=== PATIENT | male | born 1965 | race Caucasian/White ===

== ENCOUNTER 2017-07-22 20:24 | Inpatient (IN) | payer OTHER ==
[2017-07-22 21:03] VITALS: BMI 38.7
--- NOTE | 2017-07-22 21:41 | HP ---
COWS - Scale Resting Pulse: 1= [place] 81-100 Sweatin=Flushed/Facial Moisture Restless Observation: 1= Difficult to Sit Still Pupil Size: 1= Pupils >than Normal Bone or Joint Aches: 4=Acute Joint/Muscle Pain Runny Nose/ Eye Tearin= Runny Nose/Eyes GI Upset > 30mins: 2= Nausea/Diarrhea Tremor Observation: 1= Tremor Libby, Not Seen Yawning Observation: 0= None Anxiety or Irritability: 2=Irritable/Anxious Goose Flesh Skin: 0=Smooth Skin COWS Score: 16 Admission [facility] - HPI Chief Complaint: C/O WITHDRAWAL SX'S FROM HEROINE Allergies/Adverse Reactions: Allergies Allergy/AdvReac Type Severity Reaction Status Date / Time penicillin G Allergy Severe Swelling Verified 07/22/17 21:35 History of Present Illness: 51 Y.O. MALE WITH WITH HEROIN DEPENDENCE ADMITTED FOR DETOX. CLIENT DENIES RECENT DETOX SERVICES. HE IS KNOW TO [facility]. REPORTS LONGEST CLEAN TIME 30 YEARS. RELAPSING 2009. Exam Limitations: Physical Impairment (AMBULATES WITH CANE DUE SCIATICA AND SPINAL STENOSIS, NEUROPATHY) - Ebola screening Have you traveled outside of the country in the last 21 days: No Have you had contact with anyone from an Ebola affected area: No Have you been sick,other than usual withdrawal symptoms: No Do you have a fever: No - Review of Systems Constitutional: Chills, Malaise, Night Sweats, Changes in sleep EENT: reports: Dental Problems (MISSING TEETH), Mouth Pain (DENTAL PAIN), Other (GLASSES) Respiratory: reports: No Symptoms reported Cardiac: reports: No Symptoms Reported GI: reports: Diarrhea : reports: No Symptoms Reported Musculoskeletal: reports: Back Pain, Joint Pain, Neck Pain Integumentary: reports: No Symptoms Reported Neuro: reports: No Symptoms reported Endocrine: reports: Other (H/O DM) Hematology: reports: No Symptoms Reported Psychiatric: reports: Depressed Other Systems: Reviewed and Negative Patient History - Patient Medical History Hx Anemia: No Hx Asthma: Yes Hx Chronic Obstructive Pulmonary Disease (COPD): Yes Hx Cancer: No Hx Cardiac Disorders: No Hx Congestive Heart Failure: No Hx Hypertension: Yes Hx Hypercholesterolemia: No Hx Pacemaker: No HX Cerebrovascular Accident: No Hx Seizures: No Hx Dementia: No Hx Diabetes: Yes Hx Gastrointestinal Disorders: No Hx Genitourinary Disorders: No Hx Sexually Transmitted Disorders: No Hx Renal Disease (ESRD): No Hx Thyroid Disease: No Hx Human Immunodeficiency Virus (HIV): No (NEGATIVE) Hx Hepatitis C: Yes Hx Depression: Yes (ON MEDS) Hx Suicide Attempt: Yes (PRESENTLY DENIES. LAST ATTEMPT 2010) Hx Bipolar Disorder: Yes Hx Schizophrenia: No Other Medical History: DENIES - Patient Surgical History Past Surgical History: Yes Hx Neurologic Surgery: No Hx Cataract Extraction: No Hx Cardiac Surgery: No Hx Lung Surgery: Yes (BILATERAL PNEUMOTHORAX IN 2012) Hx Breast Surgery: No Hx Breast Biopsy: No Hx Abdominal Surgery: No Hx Appendectomy: No Hx Cholecystectomy: No Hx Genitourinary Surgery: No Hx Section: No Hx Orthopedic Surgery: No Other Surgical History: chest tube, both lungs in 2012/tonsilectomy - PPD History Previous Implant?: Yes Documented Results: Negative w/proof Implanted On Prior [facility] Admission?: Yes Date: 01/01/16 PPD to be Administered?: Yes - Smoking Cessation Smoking history: Former smoker Have you smoked in the past 12 months: Yes Aproximately how many cigarettes per day: 6 Hx Chewing Tobacco Use: No Initiated information on smoking cessation: Yes - Substance & Tx. History Hx Alcohol Use: No Hx Substance Use: Yes Substance Use Type: Heroin Hx Substance Use Treatment: Yes ([facility]) - Substances Abused HEROIN Route: Injection Frequency: Daily Amount used: 15 BAGS Age of first use: 11 Date of Last Use: 07/21/17 Family Disease History - Family Disease History Family Disease History: CA: Father (), Mother (breast ca) Admission Physical Exam S - Vital Signs Vital Signs: Vital Signs - 24 hr 07/22/17 21:00 Temperature 96.8 F L Pulse Rate 90 Respiratory 18 Rate Blood Pressure 140/90 - Physical General Appearance: Yes: Appropriately Dressed, Mild Distress, Tremorous, Sweating, Anxious HEENTM: Yes: EOMI, Normocephalic, Pharynx Normal, Nasal Congestion Respiratory: Yes: Chest Non-Tender, Lungs Clear, Normal Breath Sounds, No Respiratory Distress, No Accessory Muscle Use Neck: Yes: No masses,lesions,Nodules, Supple, Trachea in good position Breast: Yes: Breast Exam Deferred Cardiology: Yes: Regular Rhythm, S1, S2, Tachycardia Abdominal: Yes: Normal Bowel Sounds, Non Tender, Soft Genitourinary: Yes: Within Normal Limits Back: Yes: Normal Inspection Musculoskeletal: Yes: Other (AMBULATES WITH CANE) Extremities: Yes: Normal Capillary Refill, Non-Tender, Tremors Neurological: Yes: nailer machine II-XII NML intact, Fully Oriented, Alert Integumentary: Yes: Warm, Moist, Track Haley, Other (FLUSHED BLE VARICOSITES OLD SCAR FROM SLASHING OF WRIST TO L ARM) Lymphatic: Yes: Within Normal Limits - Diagnostic (1) Asthma Current Visit: Yes Status: Chronic Qualifiers: Asthma severity: mild intermittent Asthma complication type: uncomplicated Qualified Code(s): J45.20 - Mild intermittent asthma, uncomplicated (2) Diabetes Current Visit: Yes Status: Chronic Qualifiers: Diabetes mellitus type: type 2 (3) Hypertension Current Visit: Yes Status: Chronic Qualifiers: Hypertension type: essential hypertension Qualified Code(s): I10 - Essential (primary) hypertension (4) Opioid dependence with withdrawal Current Visit: Yes Status: Chronic Cleared for Admission S - Detox or Rehab [facility] Level of Care: Medically Managed Detox Regimen/Protocol: Methadone S Breath Alcohol Content Breath Alcohol Content: 0 Urine Drug Screen - Results Drug Screen Negative: No Urine Drug Screen Results: OPI-Opiates
[2017-07-22] MEDS ORDERED: MAGNESIUM CITRATE 300 ML BOTTLE PO PRN (21:54)
[2017-07-22] MEDS ORDERED: diphenhydrAMINE HCL 50 MG CAPSULE PO PRN (21:54)
[2017-07-22] MEDS ORDERED: NICOTINE POLACRILEX 2 MG GUM BUC PRN (21:54)
[2017-07-22] MEDS ORDERED: ACETAMINOPHEN 325 MG TABLET (FP) PO PRN (21:54)
[2017-07-22] MEDS ORDERED: MAG HYDROX/AL HYDROX/SIMETH 30 ML UNIT-DOSE CUP PO PRN (21:54)
[2017-07-22] MEDS ORDERED: METHADONE HCL 10 MG TABLET (FOR DETOX USE ONLY) PO ONE ×2 (21:54→23:00)
[2017-07-22] MEDS ORDERED: MENTHOL/PHENOL 1 EACH UD MM PRN (21:54)
[2017-07-22] MEDS ORDERED: guaiFENesin/D-METHORPHAN HB 10 ML UNIT-DOSE CUPS PO PRN (21:54)
[2017-07-22] MEDS ORDERED: MAGNESIUM HYDROX 2400MG/30ML ORAL SUSPENSION 30 ML CUP PO PRN (21:54)
[2017-07-22] MEDS ORDERED: P-EPHED 60MG/TRIPROLIDI 2.5MG TABLET PO PRN (21:54)
[2017-07-22] MEDS ORDERED: LOPERAMIDE HCL 2 MG CAPSULE PO PRN (21:54)
[2017-07-22] MEDS ORDERED: ALBUTEROL SO4 6.7 GM HFA INHALER IH PRN (21:57)
[2017-07-22] MEDS: diazePAM 5 MG TABLET PO PRN (23:11)
[2017-07-22] MEDS: THIAMINE HCL 100 MG TABLET (FP) PO SCH (23:13)
[2017-07-23 00:44] LABS: URINE APPEARANCE SLCLOUDY; URINE BILIRUBIN NEGATIVE (NEGATIVE); URINE BLOOD NEGATIVE (NEGATIVE); URINE COLOR DKYELLOW; URINE GLUCOSE (UA) 2+ (NEGATIVE); URINE KETONE NEGATIVE (NEGATIVE); URINE LEUK ESTERASE NEGATIVE (NEGATIVE); URINE NITRITE NEGATIVE (NEGATIVE); URINE PROTEIN NEGATIVE (NEGATIVE); URINE UROBILINOGEN NEGATIVE mg/dL (0.2-1.0)
[2017-07-23] MEDS: diazePAM 5 MG TABLET PO PRN ×4 (05:19→22:22)
[2017-07-23] MEDS: metFORMIN HCL 500 MG TABLET (FP) PO SCH ×2 (07:30→17:16)
[2017-07-23] MEDS: hydrOXYzine PAMOATE 50 MG CAPSULE (FP) PO PRN (08:45)
[2017-07-23] MEDS: HYDROCHLOROTHIAZIDE 12.5 MG CAPSULE (FP) PO SCH (09:38)
[2017-07-23] MEDS: LISINOPRIL 20 MG TABLET (FP) PO SCH (09:38)
[2017-07-23] MEDS: PRENATAL VITAMINS W/ FOLIC ACID TABLET (FP) PO SCH (09:38)
[2017-07-23 09:56] LABS: MCH 26.9 pg (25.7-33.7); MCHC 32.1 g/dl (32.0-35.9); MEAN CELL VOLUME 83.7 fl (80-96); PLATELET COUNT 135 K/MM3 (134-434); RDW 13.8 % (11.9-15.9); WHITE BLOOD COUNT 5.9 K/mm3 (4.0-10.0)
[2017-07-23] MEDS ORDERED: METHADONE HCL 10 MG TABLET (FOR DETOX USE ONLY) PO ONE (10:00)
[2017-07-23 10:20] LABS: ALBUMIN 3.2 g/dl (3.4-5.0); ALK PHOS 114 U/L (45-117); ANION GAP 9 (8-16); BILIRUBIN,TOTAL 0.3 mg/dL (0.2-1.0); CALCIUM 8.7 mg/dL (8.5-10.1); CO2 25 mmol/L (21-32); CREATININE 0.8 mg/dL (0.7-1.3); GLUCOSE,RANDOM 165 mg/dL (74-106); SGOT/AST 16 U/L (15-37); SGPT/ALT 28 U/L (12-78); TOT PROT 6.3 g/dl (6.4-8.2)
--- NOTE | 2017-07-23 12:07 | PN ---
BHS COWS - Scale Resting Pulse: 1= [place] 81-100 Sweatin=Flushed/Facial Moisture Restless Observation: 1= Difficult to Sit Still Pupil Size: 0= Normal to Room Light Bone or Joint Aches: 1= Mild Discomfort Runny Nose/ Eye Tearin= Runny Nose/Eyes GI Upset > 30mins: 1= Stomach Cramp Tremor Observation of Outstretched Hands: 2= Slight Tremor Visible Yawning Observation: 1= 1-2x During Session Anxiety or Irritability: 2=Irritable/Anxious Goose Flesh Skin: 0=Smooth Skin COWS Score: 13 BHS Progress Note (SOAP) Subjective: Anxiety,tremors,sweating,interrupted sleep,restless. Objective: 07/23/17 12:06 Vital Signs - 8 hr 07/23/17 07/23/17 06:26 11:13 Temperature 97.6 F 97.1 F L Pulse Rate 80 99 H Respiratory 16 20 Rate Blood Pressure 130/86 129/71 Laboratory Last Values WBC 5.9 K/mm3 (4.0-10.0) 07/23/17 07:50 RBC 4.68 M/mm3 (4.00-5.60) 07/23/17 07:50 Hgb 12.6 GM/dL (11.7-16.9) 07/23/17 07:50 Hct 39.1 % (35.4-49) 07/23/17 07:50 MCV 83.7 fl (80-96) 07/23/17 07:50 MCH 26.9 pg (25.7-33.7) 07/23/17 07:50 MCHC 32.1 g/dl (32.0-35.9) 07/23/17 07:50 RDW 13.8 % (11.9-15.9) 07/23/17 07:50 Plt Count 135 K/MM3 (134-434) 07/23/17 07:50 MPV 11.0 fl (7.5-11.1) 07/23/17 07:50 Sodium 141 mmol/L (136-145) 07/23/17 07:50 Potassium 3.8 mmol/L (3.5-5.1) 07/23/17 07:50 Chloride 107 mmol/L (98-107) 07/23/17 07:50 Carbon Dioxide 25 mmol/L (21-32) 07/23/17 07:50 Anion Gap 9 (8-16) 07/23/17 07:50 BUN 20 mg/dL (7-18) H 07/23/17 07:50 Creatinine 0.8 mg/dL (0.7-1.3) 07/23/17 07:50 Creat Clearance w eGFR > 60 (>60) 07/23/17 07:50 POC Glucometer 189 UNITS (()) 07/23/17 05:18 Random Glucose 165 mg/dL (74-106) H 07/23/17 07:50 Calcium 8.7 mg/dL (8.5-10.1) 07/23/17 07:50 Total Bilirubin 0.3 mg/dL (0.2-1.0) 07/23/17 07:50 AST 16 U/L (15-37) D 07/23/17 07:50 ALT 28 U/L (12-78) D 07/23/17 07:50 Alkaline Phosphatase 114 U/L (45-117) 07/23/17 07:50 Total Protein 6.3 g/dl (6.4-8.2) L 07/23/17 07:50 Albumin 3.2 g/dl (3.4-5.0) L 07/23/17 07:50 Urine Color Dkyellow 07/22/17 23:43 Urine Appearance Slcloudy 07/22/17 23:43 Urine pH 5.0 (5.0-8.0) D 07/22/17 23:43 Ur Specific [place] 1.025 (1.005-1.025) 07/22/17 23:43 Urine Protein Negative (NEGATIVE) 07/22/17 23:43 Urine Glucose (UA) 2+ (NEGATIVE) H 07/22/17 23:43 Urine Ketones Negative (NEGATIVE) 07/22/17 23:43 Urine Blood Negative (NEGATIVE) 07/22/17 23:43 Urine Nitrite Negative (NEGATIVE) 07/22/17 23:43 Urine Bilirubin Negative (NEGATIVE) 07/22/17 23:43 Urine Urobilinogen Negative mg/dL (0.2-1.0) 07/22/17 23:43 labs noted Assessment: 07/23/17 12:06 Withdrawal sx. Plan: Continue detox
--- NOTE | 2017-07-23 12:36 | CONSULT ---
[facility] Psychiatric Consult - Data Date of interview: 07/23/17 Admission source: [facility] Identifying data: Mr Banuelos is a 51 years old male in a common-law relationship, father of 14 living children, unemployed on SSI, domiciled seeking detox treatment for heroin Substance Abuse History: Reports that he started using heroin at age 11, consumes 15 bags daily. Last used on 07/21/17. Smokes 6 cigarettes daily Medical History: Significant for bronchial asthma, hypertension, diabetes mellitus, hepatitis C and arthritis. Allergic to penicilin G. Smokes 6 cigarettes daily Psychiatric History: Reports that he started using heroin more after he has 2 sons who in 2009. In 2011 he was admitted to [facility] in [place] for depression and intentional overdose of heroin. he was diagnosed with Bipolar Disorder and stayed there for 2 weeks. In the past he received OPD care at [facility] in [facility] and more recently up to a month ago at [facility] on [address] [place] [address] in [place], [place]. There he was prescribed Seroquel 50 mg po TID & remeron which he reports taling last 2 days ago. At present, he requests to take only Seroquel 100 mg po HS along with Remeron 30 mg po HS. Reports feeling mildly depressed at present Mental Status Exam - Mental Status Exam Alert and Oriented to: Time, Place, Person Cognitive Function: Fair Patient Appearance: Well Groomed Mood: Depressed Affect: Appropriate Patient Behavior: Cooperative Speech Pattern: Clear Voice Loudness: Normal Thought Process: Intact, Goal Oriented Hallucinations: Denies Suicidal Ideation: Denies Homicidal Ideation: Denies Insight/Judgement: Fair Sleep: Poorly Appetite: Good Muscle strength/Tone: Normal Gait/Station: Normal Psychiatric Findings - Problem List ([place] 1, 2,3) (1) Bipolar II disorder Current Visit: Yes Status: Acute (2) Opioid dependence with withdrawal Current Visit: Yes Status: Chronic (3) Nicotine dependence Current Visit: No Status: Chronic Qualifiers: Nicotine product type: cigarettes Substance use status: uncomplicated Qualified Code(s): F17.210 - Nicotine dependence, cigarettes, uncomplicated (4) Asthma Current Visit: Yes Status: Chronic Qualifiers: Asthma severity: mild intermittent Asthma complication type: uncomplicated Qualified Code(s): J45.20 - Mild intermittent asthma, uncomplicated (5) Diabetes Current Visit: Yes Status: Chronic Qualifiers: Diabetes mellitus type: type 2 (6) Hypertension Current Visit: Yes Status: Chronic Qualifiers: Hypertension type: essential hypertension Qualified Code(s): I10 - Essential (primary) hypertension (7) Arthritis Current Visit: No Status: Chronic (8) Emphysema/COPD Current Visit: No Status: Chronic - Initial Treatment Plan Initial Treatment Plan: 1) Start Seroquel 100 mg po HS and Remeron 30 mg po HS. 2) Continue inpatient detoxification
[2017-07-23] MEDS: MIRTAZAPINE 30 MG TABLET (FP) PO SCH (22:22)
[2017-07-23] MEDS: THIAMINE HCL 100 MG TABLET (FP) PO SCH (22:22)
[2017-07-23] MEDS: QUEtiapine FUMARATE 100 MG TABLET (FP) PO SCH (22:22)
[2017-07-24] MEDS: hydrOXYzine PAMOATE 50 MG CAPSULE (FP) PO PRN (02:18)
[2017-07-24] MEDS: metFORMIN HCL 500 MG TABLET (FP) PO SCH ×2 (06:14→17:07)
[2017-07-24] MEDS: diazePAM 5 MG TABLET PO PRN ×4 (06:16→22:28)
[2017-07-24] MEDS: IBUPROFEN 400 MG TABLET (FP) PO PRN (06:17)
[2017-07-24] MEDS ORDERED: METHADONE HCL 5 MG TABLET (FOR DETOX USE ONLY) PO ONE (10:00)
[2017-07-24] MEDS: HYDROCHLOROTHIAZIDE 12.5 MG CAPSULE (FP) PO SCH (10:40)
[2017-07-24] MEDS: LISINOPRIL 20 MG TABLET (FP) PO SCH (10:40)
[2017-07-24] MEDS: PRENATAL VITAMINS W/ FOLIC ACID TABLET (FP) PO SCH (10:41)
--- NOTE | 2017-07-24 13:32 | PN ---
BHS COWS - Scale Resting Pulse: 2= SD 101-120 Sweatin=Flushed/Facial Moisture Restless Observation: 1= Difficult to Sit Still Pupil Size: 0= Normal to Room Light Bone or Joint Aches: 2= Severe Diffuse Aches Runny Nose/ Eye Tearin= Nasal Congestion GI Upset > 30mins: 2= Nausea/Diarrhea Tremor Observation of Outstretched Hands: 2= Slight Tremor Visible Yawning Observation: 1= 1-2x During Session Anxiety or Irritability: 2=Irritable/Anxious Goose Flesh Skin: 3=Piloerection COWS Score: 18 BHS Progress Note (SOAP) Subjective: Sweating, Nausea, H/A, Diarrhea, Interrupted sleep, Body Aches. Objective: PT. A & O X 3, OBSERVED AMBULATING ON UNIT WITH ASSISTANCE OF A CANE. NO ACUTE DISTRESS. 07/24/17 13:30 Vital Signs Temperature 98.2 F 07/24/17 10:32 Pulse Rate 104 H 07/24/17 10:32 Respiratory Rate 18 07/24/17 10:32 Blood Pressure 125/87 07/24/17 10:32 O2 Sat by Pulse Oximetry (%) Laboratory Tests 07/22/17 07/23/17 07/23/17 23:43 05:18 07:50 WBC 5.9 RBC 4.68 Hgb 12.6 Hct 39.1 MCV 83.7 MCH 26.9 MCHC 32.1 RDW 13.8 Plt Count 135 MPV 11.0 Sodium Potassium Chloride Carbon Dioxide Anion Gap BUN Creatinine Creat Clearance w eGFR POC Glucometer 189 Random Glucose Calcium Total Bilirubin AST ALT Alkaline Phosphatase Total Protein Albumin Urine Color Dkyellow Urine Appearance Slcloudy Urine pH 5.0 D Ur Specific [place] 1.025 Urine Protein Negative Urine Glucose (UA) 2+ H Urine Ketones Negative Urine Blood Negative Urine Nitrite Negative Urine Bilirubin Negative Urine Urobilinogen Negative RPR Titer 07/23/17 07/23/17 07/23/17 07:50 07:50 16:36 WBC RBC Hgb Hct MCV MCH MCHC RDW Plt Count MPV Sodium 141 Potassium 3.8 Chloride 107 Carbon Dioxide 25 Anion Gap 9 BUN 20 H Creatinine 0.8 Creat Clearance w eGFR > 60 POC Glucometer 145 Random Glucose 165 H Calcium 8.7 Total Bilirubin 0.3 AST 16 D ALT 28 D Alkaline Phosphatase 114 Total Protein 6.3 L Albumin 3.2 L Urine Color Urine Appearance Urine pH Ur Specific [place] Urine Protein Urine Glucose (UA) Urine Ketones Urine Blood Urine Nitrite Urine Bilirubin Urine Urobilinogen RPR Titer Nonreactive 07/24/17 05:44 WBC RBC Hgb Hct MCV MCH MCHC RDW Plt Count MPV Sodium Potassium Chloride Carbon Dioxide Anion Gap BUN Creatinine Creat Clearance w eGFR POC Glucometer 166 Random Glucose Calcium Total Bilirubin AST ALT Alkaline Phosphatase Total Protein Albumin Urine Color Urine Appearance Urine pH Ur Specific [place] Urine Protein Urine Glucose (UA) Urine Ketones Urine Blood Urine Nitrite Urine Bilirubin Urine Urobilinogen RPR Titer LABS NOTED. Assessment: 07/24/17 13:31 WITHDRAWAL SYMPTOMS. Plan: CONTINUE DETOX. INCREASE PO FLUID INTAKE. PATIENT REPORTS THAT HE CURRENTLY TAKES GABAPENTIN FOR RESTLESS LEGS. DAILY DOSE OF 300 MG PO TID CONFIRMED WITH PT. PHARMACY ([facility], [place], [place] LAST FILLED 07/13/2017. MEDICATION RECONCILED SO THAT PT. MAY RECIEIVE WHILE ADMITTED FOR DETOX.
[2017-07-24] MEDS: GABAPENTIN 300 MG CAPSULE (FP) PO SCH ×2 (14:57→22:28)
[2017-07-24] MEDS: THIAMINE HCL 100 MG TABLET (FP) PO SCH (22:28)
[2017-07-24] MEDS: QUEtiapine FUMARATE 100 MG TABLET (FP) PO SCH (22:28)
[2017-07-24] MEDS: MIRTAZAPINE 30 MG TABLET (FP) PO SCH (22:28)
[2017-07-25] MEDS: GABAPENTIN 300 MG CAPSULE (FP) PO SCH ×3 (06:02→21:53)
[2017-07-25] MEDS: diazePAM 5 MG TABLET PO PRN ×4 (06:04→21:52)
[2017-07-25] MEDS: metFORMIN HCL 500 MG TABLET (FP) PO SCH ×2 (06:28→16:30)
[2017-07-25] MEDS ORDERED: METHADONE HCL 5 MG TABLET (FOR DETOX USE ONLY) PO ONE (10:00)
[2017-07-25] MEDS: LISINOPRIL 20 MG TABLET (FP) PO SCH (10:30)
[2017-07-25] MEDS: PRENATAL VITAMINS W/ FOLIC ACID TABLET (FP) PO SCH (10:30)
[2017-07-25] MEDS: HYDROCHLOROTHIAZIDE 12.5 MG CAPSULE (FP) PO SCH (10:30)
[2017-07-25] MEDS: IBUPROFEN 400 MG TABLET (FP) PO PRN (15:22)
--- NOTE | 2017-07-25 17:42 | PN ---
[facility] Progress Note (SOAP) Subjective: Headache, tremor, chills, nausea, diarrhea, stomach ache, interrupted sleep Objective: 07/25/17 17:41 Last Vital Signs Temp Pulse Resp BP Pulse Ox 97.1 F L 113 H 18 152/87 07/25/17 13:42 07/25/17 13:42 07/25/17 13:42 07/25/17 13:42 Laboratory Tests 07/22/17 07/23/17 07/23/17 23:43 05:18 07:50 WBC 5.9 RBC 4.68 Hgb 12.6 Hct 39.1 MCV 83.7 MCH 26.9 MCHC 32.1 RDW 13.8 Plt Count 135 MPV 11.0 Sodium Potassium Chloride Carbon Dioxide Anion Gap BUN Creatinine Creat Clearance w eGFR POC Glucometer 189 Random Glucose Calcium Total Bilirubin AST ALT Alkaline Phosphatase Total Protein Albumin Urine Color Dkyellow Urine Appearance Slcloudy Urine pH 5.0 D Ur Specific [place] 1.025 Urine Protein Negative Urine Glucose (UA) 2+ H Urine Ketones Negative Urine Blood Negative Urine Nitrite Negative Urine Bilirubin Negative Urine Urobilinogen Negative RPR Titer 07/23/17 07/23/17 07/23/17 07:50 07:50 16:36 WBC RBC Hgb Hct MCV MCH MCHC RDW Plt Count MPV Sodium 141 Potassium 3.8 Chloride 107 Carbon Dioxide 25 Anion Gap 9 BUN 20 H Creatinine 0.8 Creat Clearance w eGFR > 60 POC Glucometer 145 Random Glucose 165 H Calcium 8.7 Total Bilirubin 0.3 AST 16 D ALT 28 D Alkaline Phosphatase 114 Total Protein 6.3 L Albumin 3.2 L Urine Color Urine Appearance Urine pH Ur Specific [place] Urine Protein Urine Glucose (UA) Urine Ketones Urine Blood Urine Nitrite Urine Bilirubin Urine Urobilinogen RPR Titer Nonreactive 07/24/17 07/24/17 07/25/17 05:44 16:48 06:01 WBC RBC Hgb Hct MCV MCH MCHC RDW Plt Count MPV Sodium Potassium Chloride Carbon Dioxide Anion Gap BUN Creatinine Creat Clearance w eGFR POC Glucometer 166 122 130 Random Glucose Calcium Total Bilirubin AST ALT Alkaline Phosphatase Total Protein Albumin Urine Color Urine Appearance Urine pH Ur Specific [place] Urine Protein Urine Glucose (UA) Urine Ketones Urine Blood Urine Nitrite Urine Bilirubin Urine Urobilinogen RPR Titer 07/25/17 16:17 WBC RBC Hgb Hct MCV MCH MCHC RDW Plt Count MPV Sodium Potassium Chloride Carbon Dioxide Anion Gap BUN Creatinine Creat Clearance w eGFR POC Glucometer 125 Random Glucose Calcium Total Bilirubin AST ALT Alkaline Phosphatase Total Protein Albumin Urine Color Urine Appearance Urine pH Ur Specific [place] Urine Protein Urine Glucose (UA) Urine Ketones Urine Blood Urine Nitrite Urine Bilirubin Urine Urobilinogen RPR Titer Labs noted: elevated serum glucose Assessment: 07/25/17 17:42 Withdrawal symptoms Hyperglycemia secondary to DMT2 Plan: Continue detox Hyperglycemia secondary to DMT2: continue metformin and finger sticks, follow up with PCP post discharge for monitoring/management
[2017-07-25] MEDS: MIRTAZAPINE 30 MG TABLET (FP) PO SCH (21:53)
[2017-07-25] MEDS: QUEtiapine FUMARATE 100 MG TABLET (FP) PO SCH (21:53)
[2017-07-25] MEDS: THIAMINE HCL 100 MG TABLET (FP) PO SCH (21:54)
[2017-07-26] MEDS: GABAPENTIN 300 MG CAPSULE (FP) PO SCH ×3 (05:28→22:11)
[2017-07-26] MEDS: metFORMIN HCL 500 MG TABLET (FP) PO SCH ×2 (06:44→17:20)
[2017-07-26] MEDS ORDERED: METHADONE HCL 10 MG TABLET (FOR DETOX USE ONLY) PO ONE (10:00)
[2017-07-26] MEDS: PRENATAL VITAMINS W/ FOLIC ACID TABLET (FP) PO SCH (10:24)
[2017-07-26] MEDS: IBUPROFEN 400 MG TABLET (FP) PO PRN ×2 (10:26→22:12)
[2017-07-26] MEDS: LISINOPRIL 20 MG TABLET (FP) PO SCH (10:26)
[2017-07-26] MEDS: HYDROCHLOROTHIAZIDE 12.5 MG CAPSULE (FP) PO SCH (10:26)
--- NOTE | 2017-07-26 12:46 | PN ---
S Progress Note (SOAP) Subjective: Sweating, Diarrhea, H/A, Body Aches. Objective: PT. A & O X 3, OBSERVED AMBULATING ON UNIT WITH ASSISTANCE OF A CANE. NO ACUTE DISTRESS. 07/26/17 12:44 Vital Signs Temperature 96.8 F L 07/26/17 09:37 Pulse Rate 101 H 07/26/17 09:37 Respiratory Rate 18 07/26/17 09:37 Blood Pressure 118/81 07/26/17 09:37 O2 Sat by Pulse Oximetry (%) Laboratory Tests 07/22/17 07/23/17 07/23/17 23:43 05:18 07:50 WBC 5.9 RBC 4.68 Hgb 12.6 Hct 39.1 MCV 83.7 MCH 26.9 MCHC 32.1 RDW 13.8 Plt Count 135 MPV 11.0 Sodium Potassium Chloride Carbon Dioxide Anion Gap BUN Creatinine Creat Clearance w eGFR POC Glucometer 189 Random Glucose Calcium Total Bilirubin AST ALT Alkaline Phosphatase Total Protein Albumin Urine Color Dkyellow Urine Appearance Slcloudy Urine pH 5.0 D Ur Specific [place] 1.025 Urine Protein Negative Urine Glucose (UA) 2+ H Urine Ketones Negative Urine Blood Negative Urine Nitrite Negative Urine Bilirubin Negative Urine Urobilinogen Negative RPR Titer 07/23/17 07/23/17 07/23/17 07:50 07:50 16:36 WBC RBC Hgb Hct MCV MCH MCHC RDW Plt Count MPV Sodium 141 Potassium 3.8 Chloride 107 Carbon Dioxide 25 Anion Gap 9 BUN 20 H Creatinine 0.8 Creat Clearance w eGFR > 60 POC Glucometer 145 Random Glucose 165 H Calcium 8.7 Total Bilirubin 0.3 AST 16 D ALT 28 D Alkaline Phosphatase 114 Total Protein 6.3 L Albumin 3.2 L Urine Color Urine Appearance Urine pH Ur Specific [place] Urine Protein Urine Glucose (UA) Urine Ketones Urine Blood Urine Nitrite Urine Bilirubin Urine Urobilinogen RPR Titer Nonreactive 07/24/17 07/24/17 07/25/17 05:44 16:48 06:01 WBC RBC Hgb Hct MCV MCH MCHC RDW Plt Count MPV Sodium Potassium Chloride Carbon Dioxide Anion Gap BUN Creatinine Creat Clearance w eGFR POC Glucometer 166 122 130 Random Glucose Calcium Total Bilirubin AST ALT Alkaline Phosphatase Total Protein Albumin Urine Color Urine Appearance Urine pH Ur Specific [place] Urine Protein Urine Glucose (UA) Urine Ketones Urine Blood Urine Nitrite Urine Bilirubin Urine Urobilinogen RPR Titer 07/25/17 07/26/17 16:17 05:27 WBC RBC Hgb Hct MCV MCH MCHC RDW Plt Count MPV Sodium Potassium Chloride Carbon Dioxide Anion Gap BUN Creatinine Creat Clearance w eGFR POC Glucometer 125 161 Random Glucose Calcium Total Bilirubin AST ALT Alkaline Phosphatase Total Protein Albumin Urine Color Urine Appearance Urine pH Ur Specific [place] Urine Protein Urine Glucose (UA) Urine Ketones Urine Blood Urine Nitrite Urine Bilirubin Urine Urobilinogen RPR Titer LABS NOTED. Assessment: 07/26/17 12:44 WITHDRAWAL SYMPTOMS. Plan: CONTINUE DETOX. INCREASE DAILY PO WATER INTAKE.
--- NOTE | 2017-07-26 17:04 | EKG ---
Test Reason : Blood Pressure : / mmHG Vent. Rate : 085 BPM Atrial Rate : 085 BPM P-R Int : 134 ms QRS Dur : 084 ms QT Int : 348 ms P-R-T Axes : 061 011 042 degrees QTc Int : 414 ms NORMAL SINUS RHYTHM NORMAL ECG NO PREVIOUS ECGS AVAILABLE Confirmed by HARSHAL IRAHETA MD ([id number]) on 07/26/2017 5:04:04 PM Referred By: Confirmed By:HARSHAL IRAHETA MD
[2017-07-26] MEDS: QUEtiapine FUMARATE 100 MG TABLET (FP) PO SCH (22:10)
[2017-07-26] MEDS: THIAMINE HCL 100 MG TABLET (FP) PO SCH (22:10)
[2017-07-26] MEDS: MIRTAZAPINE 30 MG TABLET (FP) PO SCH (22:11)
[2017-07-27] MEDS: GABAPENTIN 300 MG CAPSULE (FP) PO SCH (05:49)
[2017-07-27] MEDS ORDERED: METHADONE HCL 5 MG TABLET (FOR DETOX USE ONLY) PO ONE (06:00)
[2017-07-27] MEDS: metFORMIN HCL 500 MG TABLET (FP) PO SCH (07:00)
[2017-07-27 09:09] VITALS: BP 121/87; PULSE 93; TEMP 97
--- NOTE | 2017-07-27 10:55 | DS ---
[facility] Detox Discharge Summary Admission Date: 07/22/17 Discharge Date: 07/27/17 - History Present History: Opioid Dependence Additional Comments: PATIENT ELECTING TO GO HOME AT THIS TIME. PATIENT WILL LIKELY ATTEND [facility] OUTPATIENT SUBSTANCE USE TREATMENT PROGRAM [facility] [place] FOR AFTERCARE. PATIENT WAS DISCHARGED FROM DETOX UNIT IN TABLE MEDICAL CONDITION. Pertinent Past History: Asthma, COPD (Emphysema), Hep C, Depression, Bipolar Disorder, Nicotine Dependence, History of Spinal Stenosis, Type II DM. - Physical Exam Results Vital Signs: Vital Signs Temperature 97 F L 07/27/17 09:08 Pulse Rate 93 H 07/27/17 09:08 Respiratory Rate 18 07/27/17 09:08 Blood Pressure 121/87 07/27/17 09:08 O2 Sat by Pulse Oximetry (%) Pertinent Admission Physical Exam Findings: WITHDRAWAL SYMPTOMS. Laboratory Tests 07/22/17 07/23/17 07/23/17 23:43 05:18 07:50 WBC 5.9 RBC 4.68 Hgb 12.6 Hct 39.1 MCV 83.7 MCH 26.9 MCHC 32.1 RDW 13.8 Plt Count 135 MPV 11.0 Sodium Potassium Chloride Carbon Dioxide Anion Gap BUN Creatinine Creat Clearance w eGFR POC Glucometer 189 Random Glucose Calcium Total Bilirubin AST ALT Alkaline Phosphatase Total Protein Albumin Urine Color Dkyellow Urine Appearance Slcloudy Urine pH 5.0 D Ur Specific [place] 1.025 Urine Protein Negative Urine Glucose (UA) 2+ H Urine Ketones Negative Urine Blood Negative Urine Nitrite Negative Urine Bilirubin Negative Urine Urobilinogen Negative RPR Titer 07/23/17 07/23/17 07/23/17 07:50 07:50 16:36 WBC RBC Hgb Hct MCV MCH MCHC RDW Plt Count MPV Sodium 141 Potassium 3.8 Chloride 107 Carbon Dioxide 25 Anion Gap 9 BUN 20 H Creatinine 0.8 Creat Clearance w eGFR > 60 POC Glucometer 145 Random Glucose 165 H Calcium 8.7 Total Bilirubin 0.3 AST 16 D ALT 28 D Alkaline Phosphatase 114 Total Protein 6.3 L Albumin 3.2 L Urine Color Urine Appearance Urine pH Ur Specific [place] Urine Protein Urine Glucose (UA) Urine Ketones Urine Blood Urine Nitrite Urine Bilirubin Urine Urobilinogen RPR Titer Nonreactive 07/24/17 07/24/17 07/25/17 05:44 16:48 06:01 WBC RBC Hgb Hct MCV MCH MCHC RDW Plt Count MPV Sodium Potassium Chloride Carbon Dioxide Anion Gap BUN Creatinine Creat Clearance w eGFR POC Glucometer 166 122 130 Random Glucose Calcium Total Bilirubin AST ALT Alkaline Phosphatase Total Protein Albumin Urine Color Urine Appearance Urine pH Ur Specific [place] Urine Protein Urine Glucose (UA) Urine Ketones Urine Blood Urine Nitrite Urine Bilirubin Urine Urobilinogen RPR Titer 07/25/17 07/26/17 07/26/17 16:17 05:27 16:23 WBC RBC Hgb Hct MCV MCH MCHC RDW Plt Count MPV Sodium Potassium Chloride Carbon Dioxide Anion Gap BUN Creatinine Creat Clearance w eGFR POC Glucometer 125 161 179 Random Glucose Calcium Total Bilirubin AST ALT Alkaline Phosphatase Total Protein Albumin Urine Color Urine Appearance Urine pH Ur Specific [place] Urine Protein Urine Glucose (UA) Urine Ketones Urine Blood Urine Nitrite Urine Bilirubin Urine Urobilinogen RPR Titer 07/27/17 05:48 WBC RBC Hgb Hct MCV MCH MCHC RDW Plt Count MPV Sodium Potassium Chloride Carbon Dioxide Anion Gap BUN Creatinine Creat Clearance w eGFR POC Glucometer 168 Random Glucose Calcium Total Bilirubin AST ALT Alkaline Phosphatase Total Protein Albumin Urine Color Urine Appearance Urine pH Ur Specific [place] Urine Protein Urine Glucose (UA) Urine Ketones Urine Blood Urine Nitrite Urine Bilirubin Urine Urobilinogen RPR Titer LABS NOTED. - Treatment Hospital Course: Detox Protocol Followed, Detoxed Safely, Responded well, Discharged Condition Good Patient has Accepted a Rehab Referral to: NO. WILL ATTEND [facility] SUBSTANCE USE TREATMENT PROGRAM ([place], [place]). - Medication Discharge Medications: Ambulatory Orders Mirtazapine [Remeron -] 30 mg PO HS #30 tablet 04/04/15 Quetiapine Fumarate [Seroquel] 400 mg PO HS 12/30/15 Trazodone HCl [Desyrel -] 200 mg PO HS 12/30/15 Mirtazapine [Remeron -] 30 mg PO HS #14 tablet 12/31/15 Quetiapine Fumarate [Seroquel -] 300 mg PO HS #30 tab 12/31/15 Quetiapine Fumarate [Seroquel] 300 mg PO HS #30 tablet 01/02/16 Hydrochlorothiazide [Hctz -] 12.5 mg PO DAILY #30 cap 01/03/16 Lisinopril [Prinivil] 20 mg PO DAILY #30 tablet 01/03/16 Mirtazapine [Remeron -] 30 mg PO HS #30 tablet 07/23/17 Quetiapine Fumarate [Seroquel] 100 mg PO HS #30 tablet 07/23/17 Albuterol Sulfate Inhaler - [Ventolin HFA Inhaler -] 2 inh PO Q4H PRN #1 inhaler 07/27/17 Budesonide/Formeterol Fumarate [SYMBICORT 160/4.5mcg -] 2 puff IH BID 07/27/17 Budesonide/Formeterol Fumarate [SYMBICORT 160/4.5mcg -] 2 puff IH BID #1 inhaler 07/27/17 Gabapentin 300 mg PO TID #90 mg 07/27/17 Metformin HCl [Glucophage -] 500 mg PO BID #60 tablet 07/27/17 - Diagnosis (1) Asthma Status: Chronic Qualifiers: Asthma severity: mild intermittent Asthma complication type: uncomplicated Qualified Code(s): J45.20 - Mild intermittent asthma, uncomplicated (2) Hypertension Status: Chronic Qualifiers: Hypertension type: essential hypertension Qualified Code(s): I10 - Essential (primary) hypertension (3) Nicotine dependence Status: Chronic Qualifiers: Nicotine product type: cigarettes Substance use status: uncomplicated Qualified Code(s): F17.210 - Nicotine dependence, cigarettes, uncomplicated (4) Opioid dependence with withdrawal Status: Acute (5) Bipolar II disorder Status: Acute (6) Diabetes Status: Chronic Qualifiers: Diabetes mellitus type: type 2 Diabetes mellitus complication status: with neurologic complications Diabetes mellitus complication detail: with polyneuropathy Diabetes mellitus usp insulin use: without usp use Qualified Code(s): E11.42 - Type 2 diabetes mellitus with diabetic polyneuropathy (7) Emphysema/COPD Status: Chronic Qualifiers: Emphysema type: unspecified Qualified Code(s): J43.9 - Emphysema, unspecified (8) History of spinal stenosis Status: Chronic - AMA Did Patient Leave Against Medical Advice: No
== END 2017-07-27 09:44 | disposition home or self-care (01) | DRG 773 ==
LOC: YASAS 20:24 → Y3N 22:16
PROVIDERS: ADMIT Internal Medicine; ATTEND Internal Medicine
PROC: HZ2ZZZZ Detoxification Services for Substance Abuse Treatment (ICD-10-PCS; principal; 2017-07-22)
DX: F11.23 Opioid dependence with withdrawal (principal); F17.210 Nicotine dependence, cigarettes, uncomplicated; F31.81 Bipolar II disorder; I10 Essential (primary) hypertension; J45.20 Mild intermittent asthma, uncomplicated; J43.9 Emphysema, unspecified; E11.42 Type 2 diabetes mellitus with diabetic polyneuropathy; Z79.4 Long term (current) use of insulin; Z91.5 Personal history of self-harm
CPT/HCPCS: 36415; 80053; 81003; 85027; 86593; 93005; 93010

== ENCOUNTER 2017-08-03 11:41 | Emergency (ER) | payer OTHER ==
[2017-08-03 11:50] VITALS: TEMP 97.8; BMI 41.1
--- NOTE | 2017-08-03 12:16 | PDOC ---
Attending Attestation - Resident Resident Name: Steffen Chu - ED Attending Attestation I have performed the following: I have examined & evaluated the patient, The case was reviewed & discussed with the resident, I agree w/resident's findings & plan, Exceptions are as noted - HPI HPI: 08/03/17 12:16 Heroin Overdose - Physicial Exam PE: 08/03/17 12:16 Awake after Narcan in the field - Medical Decision Making 08/03/17 12:[address] Chu Assessment and Plan
[2017-08-03 12:28] LABS: BASOPHIL 0.1 % (0-2.0); EOSINOPHIL 0.7 % (0-4.5); MCH 27.1 pg (25.7-33.7); MCHC 32.3 g/dl (32.0-35.9); MEAN PLT VOLUME 10.9 fl (7.5-11.1); NEUTROPHILS 85.5 % (42.8-82.8); PLATELET COUNT 150 K/MM3 (134-434); RDW 13.5 % (11.9-15.9); WHITE BLOOD COUNT 10.2 K/mm3 (4.0-10.0)
[2017-08-03 12:36] LABS: URINE APPEARANCE CLEAR; URINE BILIRUBIN NEGATIVE (NEGATIVE); URINE BLOOD NEGATIVE (NEGATIVE); URINE COLOR LTYELLOW; URINE GLUCOSE (UA) 2+ (NEGATIVE); URINE KETONE NEGATIVE (NEGATIVE); URINE LEUK ESTERASE NEGATIVE (NEGATIVE); URINE NITRITE NEGATIVE (NEGATIVE); URINE UROBILINOGEN NEGATIVE mg/dL (0.2-1.0)
--- NOTE | 2017-08-03 12:38 | PDOC ---
History of Present Illness - General Chief Complaint: Overdose Stated Complaint: OVERDOSE Time Seen by Provider: 08/03/17 12:07 History Source: Patient Exam Limitations: No Limitations - History of Present Illness Initial Comments: 08/03/17 12:27 Patient is a 51M with history of asthma, copd, htn and opiate abuse is here today complaining of a drug overdose. He says that he took 3 bags of heroin IV instead of his usual two, then his son found him in the bathtub unresponsive. Medics arrived and gave him 2mg of narcan IN, which he responded to quickly. He endorses nausea, minor headache and chills. He denies fevers and vomiting. He denies thoughts of harming himself or others. He does not own any firearms. He states that he feels fine and just want to go home. He denies any trauma. Past History - Past Medical History Allergies/Adverse Reactions: Allergies Allergy/AdvReac Type Severity Reaction Status Date / Time penicillin G Allergy Severe Swelling Verified 08/03/17 11:47 Home Medications: Ambulatory Orders Mirtazapine [Remeron -] 30 mg PO HS #30 tablet 04/04/15 Trazodone HCl [Desyrel -] 200 mg PO HS 12/30/15 Lisinopril [Prinivil] 20 mg PO DAILY #30 tablet 01/03/16 Albuterol Sulfate Inhaler - [Ventolin HFA Inhaler -] 2 inh PO Q4H PRN #1 inhaler 07/27/17 Budesonide/Formeterol Fumarate [SYMBICORT 160/4.5mcg -] 2 puff IH BID 07/27/17 Gabapentin 300 mg PO TID #90 mg 07/27/17 Metformin HCl [Glucophage -] 500 mg PO BID #60 tablet 07/27/17 Quetiapine Fumarate [Seroquel] 150 mg PO HS 08/03/17 Anemia: No Asthma: Yes Cancer: No Cardiac Disorders: No CVA: No COPD: Yes CHF: No Dementia: No Diabetes: Yes GI Disorders: No Disorders: No HTN: Yes Hypercholesterolemia: No Kidney Stones: No Seizures: No Thyroid Disease: No - Surgical History Abdominal Surgery: No Appendectomy: No Cardiac Surgery: No Cholecystectomy: No Lung Surgery: Yes (BILATERAL PNEUMOTHORAX IN 2012) Neurologic Surgery: No Orthopedic Surgery: No - Reproductive History Testicular Surgery: No - Suicide/Smoking/Psychosocial Hx Smoking History: Former smoker Have you smoked in the past 12 months: Yes Number of Cigarettes Smoked Daily: 6 Cigars Per Day: 0 Information on smoking cessation initiated: No 'Breaking Loose' booklet given: 07/22/17 Hx Alcohol Use: No Drug/Substance Use Hx: Yes ([facility]) Substance Use Type: Heroin Hx Substance Use Treatment: Yes ([facility]) Review of Systems - Review of Systems Comments:: 08/03/17 12:32 GENERAL/CONSTITUTIONAL: No fever. Positive for chills. No weakness. HEAD, EYES, EARS, NOSE AND THROAT: No change in vision. No sore throat. CARDIOVASCULAR: No chest pain or shortness of breath RESPIRATORY: No cough, wheezing, or hemoptysis. GASTROINTESTINAL: Positive for nausea. Negative for vomiting, diarrhea or constipation. GENITOURINARY: No dysuria, frequency, or change in urination. MUSCULOSKELETAL: No joint or muscle swelling or pain. Positive for back pain. SKIN: No rash NEUROLOGIC: No headache, vertigo, loss of consciousness, or change in strength/ sensation. ENDOCRINE: No increased thirst. No abnormal weight change ALLERGIC/IMMUNOLOGIC: No hives or skin allergy. *Physical Exam - Vital Signs Last Vital Signs Temp Pulse Resp BP Pulse Ox 97.8 F 102 H 20 158/108 100 08/03/17 11:47 08/03/17 11:47 08/03/17 11:47 08/03/17 11:47 08/03/17 11:47 - Physical Exam Comments: 08/03/17 12:38 GENERAL: Awake, alert, and fully oriented, in no acute distress HEAD: No signs of trauma, normocephalic, atraumatic EYES: PERRLA, EOMI, sclera anicteric, conjunctiva clear ENT: Auricles normal inspection, hearing grossly normal, nares patent, oropharynx clear without exudates. Moist mucosa NECK: Normal ROM, supple, no lymphadenopathy, JVD, or masses LUNGS: No distress, speaks full sentences, clear to auscultation bilaterally HEART: Regular rate and rhythm, normal S1 and S2, no murmurs, rubs or gallops, peripheral pulses normal and equal bilaterally. ABDOMEN: Soft, nontender, normoactive bowel sounds. No guarding, no rebound. No masses EXTREMITIES: Normal inspection, Normal range of motion, no edema. No clubbing or cyanosis. NEUROLOGICAL: Cranial nerves II through XII grossly intact. Normal speech, no focal sensorimotor deficits SKIN: Warm, Dry, normal turgor, no rashes or lesions noted. ED Treatment Course - LABORATORY CBC & Chemistry Diagram: 08/03/17 12:02 08/03/17 12:02 Medical Decision Making - Medical Decision Making 08/03/17 12:40 Patient is a 51M with history of opiate abuse, asthma, copd, and htn here today for a drug overdose. Responsive to narcan in the field, reports taking heroin only. Immediately responsive to narcan in the field. No infectious signs. Vital signs stable and normal, walking around ED. No indication that this was a suicide attempt. Will monitor for 90 minutes and discharge. Anticipated discharge at 1:15pm. 08/03/17 13:08 Laboratory Tests 08/03/17 08/03/17 08/03/17 12:02 12:02 12:02 WBC 10.2 H D Hgb 12.8 Hct 39.8 Plt Count 150 BUN 26 H D Creatinine 1.1 D AST 125 H D ALT 103 H D Opiates Screen Positive Benzodiazepines Screen Positive CBC shows small white count, otherwise normal. CMP shows mild liver enzyme elevation. UA negative. Drug screen positive and benzos. Will discharge to home. Return precautions given. Patient is alert and ambulatory at discharge. *DC/Admit/Observation/Transfer Diagnosis at time of Disposition: Opiate overdose - Discharge Dispostion Disposition: HOME Condition at time of disposition: Good Admit: No - Patient Instructions Printed Discharge Instructions: DI for Drug Overdose in Adults
[2017-08-03 12:42] LABS: URINE PROTEIN 1+ (NEGATIVE)
[2017-08-03 12:43] LABS: URINE HYALINE CAST 10 /lpf; URINE MUCUS RARE; URINE RBC NONE SEEN /hpf (0-3); URINE WBC 2 /hpf (3-5)
--- NOTE | 2017-08-03 12:44 | EKG ---
Test Reason : Blood Pressure : / mmHG Vent. Rate : 100 BPM Atrial Rate : 100 BPM P-R Int : 132 ms QRS Dur : 088 ms QT Int : 330 ms P-R-T Axes : 044 -10 026 degrees QTc Int : 425 ms NORMAL SINUS RHYTHM NORMAL ECG WHEN COMPARED WITH ECG OF 22-JUL-2017 23:22, NO SIGNIFICANT CHANGE WAS FOUND REPEAT EKG IF CLINICALLY INDICATED Confirmed by EULA DEAN MD ([id number]) on 08/03/2017 12:44:37 PM Referred By: Confirmed By:EULA DEAN MD
[2017-08-03 12:59] LABS: ALBUMIN 3.6 g/dl (3.4-5.0); ANION GAP 5 (8-16); CALCIUM 8.9 mg/dL (8.5-10.1); CO2 30 mmol/L (21-32); CREATININE 1.1 mg/dL (0.7-1.3); GLUCOSE,RANDOM 232 mg/dL (74-106); SGOT/AST 125 U/L (15-37); SGPT/ALT 103 U/L (12-78); URINE MARIJUANA THC NEGATIVE ng/ml (CUTOFF=50)
[2017-08-03 13:00] LABS: ALK PHOS 130 U/L (45-117); BILIRUBIN,TOTAL 0.3 mg/dL (0.2-1.0); TOT PROT 7.2 g/dl (6.4-8.2)
[2017-08-03 13:13] VITALS: BP 155/99; PULSE 98
== END 2017-08-03 13:13 | disposition home or self-care (01) ==
LOC: JER 11:41
DX: T40.1X1A Poisoning by heroin, accidental (unintentional), initial encounter (principal); J45.909 Unspecified asthma, uncomplicated; I10 Essential (primary) hypertension
CPT/HCPCS: 36415; 80053; 80307; 81003; 81015; 85025; 93005; 93010; 99283-25